=== PATIENT | female | born 2000 | race African-American/Black ===

== ENCOUNTER 2020-01-19 13:30 | Emergency (ER) | payer MEDICAID ==
[~2020-01-19] VITALS: Ht 165.1 cm; Wt 77.0 kg
[2020-01-19] MEDS ORDERED: LORAZEPAM 1MG TABLET PO ONE (14:45)
[2020-01-19 16:25] VITALS: BP 130/80
== END 2020-01-19 16:44 | disposition home or self-care (01) ==
LOC: ER 13:30
DX: A60.04 Herpesviral vulvovaginitis (principal); N76.5 Ulceration of vagina; K13.0 Diseases of lips
CPT/HCPCS: 86592; 99283